=== PATIENT | male | born 1980 | race Caucasian/White ===

== ENCOUNTER → 2020-08-01 15:18 | Outpatient (CLI) | payer OTHER, SELFPAY ==
--- NOTE | 2020-08-01 15:25 | DI.RAD.S_ITS ---
PROCEDURE: XR FOOT RT MIN 3V INDICATIONS: GOUT TECHNIQUE: 3 views of the foot were acquired. COMPARISON: , CR, XR FOOT LT MIN 3V, 08/01/2020, 15:38. FINDINGS: Bones: No fractures or dislocations. No suspicious bony lesions. Soft tissues: No tibiotalar joint effusion. Achilles tendon appears normal. IMPRESSION: Osseous erosions at this time are not found. Dictated by: Terell Cooper M.D. on 08/01/2020 at 16:04 Approved by: Terell Cooper M.D. on 08/01/2020 at 16:04
--- NOTE | 2020-08-01 15:25 | DI.RAD.S_ITS ---
PROCEDURE: XR FOOT LT MIN 3V INDICATIONS: GOUT TECHNIQUE: 3 views of the foot were acquired. COMPARISON: None. FINDINGS: Bones: No fractures or dislocations. No suspicious bony lesions. Soft tissues: No tibiotalar joint effusion. Achilles tendon appears normal. IMPRESSION: Osseous erosions are not found. Dictated by: Terell Cooper M.D. on 08/01/2020 at 16:05 Approved by: Terell Cooper M.D. on 08/01/2020 at 16:05
== END ==
PROVIDERS: Family Provider Family Medicine; PCP Family Medicine; Referring Provider Family Medicine; Visit Provider Family Medicine
DX: M10.071 Idiopathic gout, right ankle and foot (principal); M79.671 Pain in right foot; M79.672 Pain in left foot
CPT/HCPCS: 73630